=== PATIENT | male | born 2000 | race Caucasian/White ===

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

== ENCOUNTER 2021-06-07 22:27 | Emergency (ER) | payer OTHER ==
[2021-06-08 00:50] VITALS: BP 110/70
== END 2021-06-08 00:50 | disposition home or self-care (01) | DRG 605 ==
LOC: ED 22:27
DX: S60.444A External constriction of right ring finger, initial encounter (principal); M79.89 Other specified soft tissue disorders; W49.04XA Ring or other jewelry causing external constriction, initial encounter